=== PATIENT | female | born 1985 | race Caucasian/White ===

== ENCOUNTER → 2017-09-22 13:09 | Outpatient (CLI) | payer BC, SELFPAY ==
[2017-09-22 16:58] LABS: hCG Titer Quant., Serum 306 mIU/mL (<9 non-preg)
== END ==
PROVIDERS: Visit Provider Obstetrics & Gynecology
DX: N91.2 Amenorrhea, unspecified (principal)
CPT/HCPCS: 36415; 84702

== ENCOUNTER → 2017-09-24 16:41 | Outpatient (CLI) | payer BC, SELFPAY ==
[2017-09-24 19:00] LABS: hCG Titer Quant., Serum 756 mIU/mL (<9 non-preg)
== END ==
PROVIDERS: Visit Provider Obstetrics & Gynecology
DX: N91.2 Amenorrhea, unspecified (principal)
CPT/HCPCS: 36415; 84702

== ENCOUNTER → 2017-10-16 19:20 | Outpatient (CLI) | payer BC, SELFPAY ==
[2017-10-16 22:03] LABS: Chlamydia Trachomatis by PCR Negative (Negative); Neisserai gonorrhoeae by PCR Negative (Negative); Probe Check PASS; Sample Adequacy Control PASS; Specimen Processing Control PASS
[2017-10-21 16:03] LABS: HPV Reflexed? NOT INDICATED
== END ==
PROVIDERS: Family Provider Family Medicine; PCP Family Medicine; Visit Provider Obstetrics & Gynecology
DX: Z32.01 Encounter for pregnancy test, result positive (principal); Z11.3 Encounter for screening for infections with a predominantly sexual mode of transmission
CPT/HCPCS: 87491; 87591; 88175; G0145

== ENCOUNTER → 2017-10-31 11:35 | Outpatient (CLI) | payer BC, SELFPAY ==
[2017-10-31 13:59] LABS: Color, Urine Yellow (Yellow); Glucose, Dipstick Normal (Normal); Ketone-Dipstick Negative (Negative); Leukocyte Esterase-Dipstick Negative /ul (Negative); Nitrite-Dipstick Negative (Negative); Occult Blood-Urine Negative /ul (Negative); Protein-Dipstick Negative (Negative); Specific Gravity, Urine 1.015 (1.002-1.030); Urine Bilirubin Dipstick Negative (Negative); Urine Clarity Sl. Cloudy (Clear); Urine Urobilinogen Normal (Normal)
[2017-10-31 14:01] LABS: Absolute Lymphocyte Count 1.64 X10^3/ul (0.83-4.51); Absolute Neutrophil Count 4.1 X10^3/uL (2.0-7.7); Basophil# 0.02 X10^3/uL; Basophil% 0.3 % (0-1); Eosinophil# 0.06 X10^3/uL; Hematocrit 38.5 % (37-47); Hemoglobin 12.2 g/dl (12.0-15.0); Lymphocyte # 1.64 X10^3/ul (4.0); Lymphocyte % 26.9 % (19-41); Mean Corp Hgb Conc 31.7 g/gl (32-36); Mean Corpuscular Hgb 28.8 pg (27.0-32.0); Mean Corpuscular Volume 90.8 fL (81-99); Mean Platelet Vol. 12.3 fl (6.2-12.0); Monocyte# 0.26 X10^3/uL; Monocyte% 4.3 % (0-10); Neutrophil # 4.12 X10^3/uL (2.7-7.7); Neutrophil % 67.5 % (47-70); POSITIVE COUNT NO; POSITIVE DIFFERENTIAL NO; POSITIVE MORPHOLOGY NO; Platelet Count 232 K/mm3 (150-450); RBC Distribution Width SD 39.7 fl (35.1-43.9); Red Blood Count 4.24 M/mm3 (4.2-5.4); White Blood Count 6.1 K/mm3 (4.4-11.0)
[2017-10-31 14:04] LABS: COTININE Drug Screen Negative (<200 ng/mL)
[2017-10-31 14:11] LABS: Amphetamine Urine VISTA NEGATIVE (<1000 ng/mL); Barbiturate Urine VISTA NEGATIVE (< 200 ng/mL); Benzodiazepine Urine VISTA NEGATIVE (< 200 ng/mL); Cocaine Urine VISTA NEGATIVE (< 300 ng/mL); Ecstacy Urine VISTA NEGATIVE (< 500 ng/mL); Methadone Urine VISTA NEGATIVE (< 300 ng/mL); PCP Urine VISTA NEGATIVE (< 25 ng/mL); THC Urine VISTA NEGATIVE (< 50 ng/mL); Vista UDS pH Range 6
[2017-10-31 14:27] LABS: Thyroid Stim Hormone (TSH) 0.39 uIU/mL (0.358-3.74)
[2017-10-31 14:56] LABS: HIV - WCH Non-Reactive (Nonreactive)
[2017-11-01 08:37] LABS: HEPATITIS B SURFACE AG Negative (Negative); Hep C Antibodies 0.1 s/co ratio (0.0-0.9)
[2017-11-07 03:14] LABS: Prenatal RPR NONREACTIVE (NONREACTIVE)
== END ==
PROVIDERS: Visit Provider Obstetrics & Gynecology
DX: Z34.81 Encounter for supervision of other normal pregnancy, first trimester (principal); Z3A.00 Weeks of gestation of pregnancy not specified
CPT/HCPCS: 36415; 80307; 81002; 84443; 85025; 86703; 86762; 86803; 87340

== ENCOUNTER → 2018-03-05 10:53 | Outpatient (CLI) | payer BC, SELFPAY ==
[2018-03-05 12:52] LABS: Hematocrit 32.4 % (37-47); Hemoglobin 10.4 g/dl (12.0-15.0); Mean Corp Hgb Conc 32.1 g/gl (32-36); Mean Corpuscular Hgb 29.9 pg (27.0-32.0); Mean Corpuscular Volume 93.1 fL (81-99); Mean Platelet Vol. 13.7 fl (6.2-12.0); Platelet Count 157 K/mm3 (150-450); RBC Distribution Width CV 12.6 % (11.6-14.6); Red Blood Count 3.48 M/mm3 (4.2-5.4); Scan Indicated on CBC? Y/N NO; White Blood Count 6.9 K/mm3 (4.4-11.0)
[2018-03-05 12:58] LABS: Glucose Challenge Gest 1H 50g 158 mg/dL (70-140)
== END ==
LOC: WOBLAB 10:54 → LABSPEC 10:55
PROVIDERS: Visit Provider Obstetrics & Gynecology
DX: Z34.83 Encounter for supervision of other normal pregnancy, third trimester (principal)
CPT/HCPCS: 82950; 85027

== ENCOUNTER → 2018-03-11 16:34 | Outpatient (CLI) | payer BC, SELFPAY ==
[2018-03-11 07:48] LABS: Glucose GTT-Gestation. Fasting 99 mg/dL (<105)
[2018-03-11 08:37] LABS: Glucose GTT-Gestational 1 Hr 194 mg/dL (<190)
[2018-03-11 10:20] LABS: Glucose GTT-Gestational 2 Hr 123 mg/dL (<165)
[2018-03-11 11:06] LABS: Glucose GTT-Gestational 3 Hr 120 L (<145)
== END ==
PROVIDERS: Family Provider Family Medicine; PCP Family Medicine; Visit Provider Obstetrics & Gynecology
DX: O24.912 Unspecified diabetes mellitus in pregnancy, second trimester (principal)
CPT/HCPCS: 36415; 82951; 82952

== ENCOUNTER → 2018-04-30 10:43 | Outpatient (CLI) | payer BC, SELFPAY ==
[2018-04-30 12:12] LABS: Hematocrit 33.7 % (37-47); Mean Corp Hgb Conc 32.6 g/gl (32-36); Mean Corpuscular Hgb 30.2 pg (27.0-32.0); Mean Corpuscular Volume 92.6 fL (81-99); Platelet Count 166 K/mm3 (150-450); RBC Distribution Width CV 13.1 % (11.6-14.6); Red Blood Count 3.64 M/mm3 (4.2-5.4); White Blood Count 8.4 K/mm3 (4.4-11.0)
[2018-04-30 12:14] LABS: Scan Indicated on CBC? Y/N NO
[2018-04-30 17:47] LABS: Group B Strep DNA By PCR Negative (Negative); Internal Control PASS; Probe Check PASS; Specimen Processing Control PASS
== END ==
PROVIDERS: Family Provider Family Medicine; PCP Family Medicine; Visit Provider Obstetrics & Gynecology
DX: Z36.85 Encounter for antenatal screening for Streptococcus B (principal); Z34.83 Encounter for supervision of other normal pregnancy, third trimester
CPT/HCPCS: 36415; 85027; 87081; 87653

== ENCOUNTER 2018-05-20 07:04 | Inpatient (IN) | payer BC, SELFPAY ==
[2018-05-20] MEDS: Lactated Ringers 1,000 ML 50 ML IV ×2 (07:30→16:24)
[2018-05-20] MEDS: Oxytocin 30 units/NS 500 ml 30 UNITS/500 ML IV.SOLN IV (07:46)
[2018-05-20 07:50] LABS: Hematocrit 34.2 % (37-47); Hemoglobin 11.1 g/dl (12.0-15.0); Mean Corp Hgb Conc 32.5 g/gl (32-36); Mean Corpuscular Hgb 29.8 pg (27.0-32.0); Mean Corpuscular Volume 91.7 fL (81-99); Mean Platelet Vol. 11.8 fl (6.2-12.0); Platelet Count 128 K/mm3 (150-450); RBC Distribution Width CV 13.1 % (11.6-14.6); RBC Distribution Width SD 43.4 fl (35.1-43.9); Red Blood Count 3.73 M/mm3 (4.2-5.4); Scan Indicated on CBC? Y/N NO; White Blood Count 7.4 K/mm3 (4.4-11.0)
[2018-05-20 07:55] VITALS: BMI 38.7
[2018-05-20] MEDS: fentaNYL-bupivacaine (epidural) 100 ML BAG EPIDURAL (16:20)
[2018-05-20] MEDS: Ondansetron 4 MG/2 ML Vial IV (18:55)
[2018-05-20] MEDS: Oxytocin 30 units/NS 500 ml 30 UNITS/500 ML IV.SOLN 334 UNITS IV (19:43)
--- NOTE | 2018-05-20 20:04 | PCM.OB.VAG ---
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 Mouth was suctioned at delivery. There was an active cry shortly after delivery. Delayed cord clamping was employed. The cord was then clamped and cut. The placenta delivered spontaneously intact with a marginally inserted 3VC. The upper vagina and cervix were inspected and found to be intact. A small posterior vaginal first degree tear was repaired with 3-0 Rapide suture. The uterus contracted well. Presentation: Vertex Placental Delivery Description: Spontaneous Placenta Disposition: [facility] Percentage of Placenta Abruption: 0 Cord Vessel Description: 3 Vessels Nuchal Cord Compression: Without compression Cord Entanglement: None Drain: Barber to straight drain Estimated Blood Loss: 300cc Infant A gender: Female (1 minute): 8 (5 minute): 9 Episiotomy Description: None Laceration: Midline, Vaginal Extension/lac, 1st degree Medications given after delivery: IV Pitocin Complications: None
--- NOTE | 2018-05-20 20:11 | DCINST_ITS ---
Discharge Diet: No Restrictions Discharge Activity: Return to Normal Activity, May Drive, May Shower Return to work on:: 07/20/18 May shower in (days): 0 May resume sexual activity in: 4-6 weeks Call your doctor if your incision/area has: Sudden Increased Bleeding, Increased Pain/ Swelling, Increased Redness, Foul Smelling Discharge Call your doctor if you observe: Fever of 101 or Higher, Inability to urinate, Inability to have a bowel movement, Using more than one pad per hour, Shortness of breath, Chest pain, Calf discomfort, Uncontrolled pain Cleanse incision/area with: Soap & Water Additional Instructions: If you experience any of the following, contact your healthcare provider. * Bleeding that soaks a pad every hour for 2 hours * Fever 100.4 or higher * Unrelieved incision or abdominal pain * Swelling, redness, discharge or bleeding from your incision or episiotomy site * Your incision begins to separate * Problems urinating (including inability to urinate or burning while urinating). * Visual changes * Severe headache * Flu-like symptoms * Pain or redness in one of both of your breasts * Pain, warmth, tenderness or swelling in your legs, especially the calf area * Frequent nausea and vomiting * Symptoms of depression or anxiety If you experience any of the following, call 911 or go to the nearest Emergency Room. * Chest pain * Problems breathing * Seizure activity * Partial or complete paralysis of a body part, slurred speech, weakness or drooping of the face, or a sudden inability to walk or hold your balance Allergies/Adverse Reactions: Allergies No Known Allergies Allergy (Verified 10/20/15 16:45) Medications to take at Discharge Enoxaparin Sodium [Lovenox] 40 mg SQ DAILY #30 ml 05/20/18 Ferrous Gluconate 325 mg PO QHS 05/20/18 Heparin Injection 10,000 units SC BID 05/20/18 Ibuprofen 600 mg PO Q6H PRN PRN #30 tab 05/20/18 Pantoprazole Sodium [Protonix] 40 mg PO DAILY 05/20/18 Pantoprazole Sodium [Protonix] 40 mg PO DAILY tablet 05/20/18 Ibz833/FA/Omega3/Dha/Fish Oil [ Gummies] 2 each PO DAILY 05/20/18 The following prescriptions were given: Ibuprofen 600 mg PO Q6H PRN PRN #30 tab PRN Reason: pain or cramping Enoxaparin Sodium [Lovenox] 40 mg SQ DAILY #30 ml Please Follow Up With: Pipo Mobley MD When: 6 weeks Primary Care Physician: Walt Fairbanks MD [Primary Care Provider] - Test Results: Test results from this visit will be discussed in further detail at your follow- up appointment, if applicable. Proposed Discharge Date: 05/22/18
[2018-05-20] MEDS: Oxytocin 30 units/NS 500 ml 30 UNITS/500 ML IV.SOLN 167 UNITS IV (20:13)
[2018-05-20] MEDS: Ferrous Gluconate 325 MG Tablet PO (22:30)
[2018-05-21 00:35] VITALS: BP 89/47; PULSE 99; RESP 17; TEMP 36.9
[2018-05-21 05:11] VITALS: BP 103/62; PULSE 92; RESP 16; TEMP 36.2
[2018-05-21] MEDS: Enoxaparin 40 MG/0.4 ML Syringe SC (05:25)
[2018-05-21] MEDS: Acetaminophen 500 MG Tablet 1000 MG PO (05:35)
[2018-05-21 05:48] LABS: Hematocrit 30.2 % (37-47); Mean Corp Hgb Conc 33.1 g/gl (32-36); Mean Corpuscular Hgb 30.7 pg (27.0-32.0); Mean Corpuscular Volume 92.6 fL (81-99); Platelet Count 140 K/mm3 (150-450); RBC Distribution Width SD 42.2 fl (35.1-43.9); Red Blood Count 3.26 M/mm3 (4.2-5.4); White Blood Count 11.6 K/mm3 (4.4-11.0)
[2018-05-21 05:55] LABS: Scan Indicated on CBC? Y/N NO
--- NOTE | 2018-05-21 07:57 | PCM.PN.OB ---
Subjective: No specific complaints. Bleeding light. Objective: Afeb VSS Hgb stable - Physical Exam General: Alert, Oriented x3, Cooperative, No apparent distress Lungs: Clear to auscultation, Normal air movement Cardiovascular: Regular rate, Regular Rhythm Abdomen: Soft, Non Tender, Non-Distended, - - Fundus notnender Extremities: No edema, No Calf Tenderness Skin: No rashes Neurological: Neuro grossly intact Psych/Mental Status: Normal Affect Comment: Lochia light Vital Signs Temp Pulse Resp BP 97.1 F L 92 16 103/62 05/21/18 05:11 05/21/18 05:11 05/21/18 05:11 05/21/18 05:11 Oxygen Delivery Method Room Air Weight: 218 lb 14.704 oz Body Mass Index (BMI) 38.7 Intake and Output for Last 24 Hours 05/19/18 05/20/18 05/21/18 23:59 23:59 23:59 Intake Total 3178 / 3178 Output Total 1925 / 1925 1100 / 1100 Balance 1253 / 1253 -1100 / -1100 Laboratory Tests Past 24 Hrs 05/20/18 05/21/18 07:35 05:30 WBC 11.6 H RBC 3.26 L Hgb 10.0 L Hct 30.2 L MCV 92.6 MCH 30.7 MCHC 33.1 RDW 13.0 RDW Differential 42.2 Plt Count 140 L MPV 12.0 Blood Type A POSITIVE Antibody Screen NEGATIVE Medical Necessity - Tobacco Use Smoking Status: Never smoker Assessment/Plan Doing well on PP day#1. Continue routine PP care. Restart Lovenox today.
[2018-05-21 08:00] VITALS: BP 109/74; PULSE 84; RESP 14; TEMP 36.9; O2SAT 96
[2018-05-21] MEDS: Pantoprazole Sodium 40 MG Tablet PO (10:15)
[2018-05-21 12:00] VITALS: BP 113/68; PULSE 86; RESP 14; TEMP 37.1; O2SAT 96
[2018-05-21] MEDS: Prenatal Vits Tablet 2 TABLET PO (12:19)
[2018-05-21 17:30] VITALS: BP 107/65; PULSE 88; TEMP 36.9; O2SAT 97
[2018-05-21] MEDS: Senna/Docusate Sodium 1 Tablet PO (18:49)
[2018-05-21 20:00] VITALS: BP 113/72; PULSE 73; RESP 18; TEMP 37.1; O2SAT 97
[2018-05-21] MEDS: Ferrous Gluconate 325 MG Tablet PO (22:47)
[2018-05-22 02:40] VITALS: BP 120/70; PULSE 87; RESP 16; TEMP 36.9
[2018-05-22] MEDS: Enoxaparin 40 MG/0.4 ML Syringe SC (06:29)
--- NOTE | 2018-05-22 07:20 | PCM.PN.OB ---
Subjective: PPD#2 vaginal delivery Doing well. Nursing baby. Minimal pain, cramping and taking tylenol for this. No concerns - Physical Exam General: Alert, Oriented x3, Cooperative, No apparent distress HEENT: Atraumatic Neck: Supple Neurological: Cranial nerves II-XII grossly intact Psych/Mental Status: Normal Affect Vital Signs Temp Pulse Resp BP Pulse Ox 98.4 F 87 16 120/70 97 05/22/18 02:40 05/22/18 02:40 05/22/18 02:40 05/22/18 02:40 05/21/18 20:00 Oxygen Delivery Method Room Air Weight: 99.3 kg Body Mass Index (BMI) 38.7 Intake and Output for Last 24 Hours 05/20/18 05/21/18 05/22/18 23:59 23:59 23:59 Intake Total 3178 / 3178 Output Total 1925 / 1925 1100 / 1100 Balance 1253 / 1253 -1100 / -1100 Medical Necessity - Tobacco Use Smoking Status: Never smoker Assessment/Plan PPD#2 vaginal delivery Stable pp. Discharge home. RTO in 6 wk for pp check.
[2018-05-22 08:00] VITALS: BP 111/69; PULSE 91; RESP 18; TEMP 36.2
[2018-05-22] MEDS: Prenatal Vits Tablet 2 TABLET PO (10:11)
[2018-05-22] MEDS: Pantoprazole Sodium 40 MG Tablet PO (10:12)
== END 2018-05-22 11:34 | disposition home or self-care (01) | DRG 806 ==
PROVIDERS: Admitting Provider Obstetrics & Gynecology; Family Provider Family Medicine; PCP Family Medicine; Referring Provider Obstetrics & Gynecology; Visit Provider Obstetrics & Gynecology
DX: O99.12 Other diseases of the blood and blood-forming organs and certain disorders involving the immune mechanism complicating childbirth (principal); D68.51 Activated protein C resistance; Z37.0 Single live birth; O70.0 First degree perineal laceration during delivery; Z79.01 Long term (current) use of anticoagulants; Z79.899 Other long term (current) drug therapy; Z86.718 Personal history of other venous thrombosis and embolism; Z86.711 Personal history of pulmonary embolism; Z3A.39 39 weeks gestation of pregnancy
CPT/HCPCS: 59025; 59050; 85027; 86850; 86900; 99218; J7120; 90686; G0378; J2405

== ENCOUNTER 2021-11-12 16:43 | Outpatient (CLI) | payer BC, SELFPAY ==
[2021-11-14 22:07] LABS: Chlamydia By Nucleic Acid AMP Negative (Negative)
[2021-11-14 22:13] LABS: Gonococcus By Nucleic Acid AMP Negative (Negative)
== END 2021-11-12 23:59 | disposition home or self-care (01) ==
LOC: LABSPEC 16:44
PROVIDERS: PCP Family Medicine; Visit Provider Student in an Organized Health Care Education/Training Program
DX: Z11.3 Encounter for screening for infections with a predominantly sexual mode of transmission (principal)
CPT/HCPCS: 87491; 87591